=== PATIENT | female | born 1945 | race Caucasian/White ===

== ENCOUNTER → 2016-03-18 | Outpatient (CLI) | payer MEDICARE, BC ==
--- NOTE | 2016-03-19 05:39 | WWHP ---
DATE OF SERVICE: 03/18/2016 CHIEF COMPLAINT: The patient is here for her routine gynecologic exam and mammogram. HPI: This is a 71-year-old, G2, P2 with an LMP of 2000. The patient is without gynecologic complaints and denies any postmenopausal bleeding. PAST MEDICAL HISTORY: Coronary artery disease, sleep apnea, chronic hypertension, gastroesophageal reflux disease, depression, irregular PVCs, mild COPD, and hypothyroidism. Dr. Nieves is her primary care physician. MEDICATIONS: 1. Zoloft 50 mg daily. 2. Cozaar 1 daily. 3. Toprol 25 mg daily. 4. Hydrochlorothiazide 25 mg daily. 5. Aspirin 81 mg daily. 6. AcipHex 20 mg daily. 7. Plavix 75 mg daily. 8. Synthroid 50 mcg daily. ALLERGIES: No known drug allergies. Past surgical history is unchanged from the 2015 H&P. 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 SOCIAL HISTORY: She denies tobacco, alcohol, and drug use and is now retired. She has been since 1967. REVIEW OF SYSTEMS: She has gained about 10 pounds over the last 18 months. She has been experiencing extreme exhaustion recently. She denies respiratory, cardiac problems. GI: She has occasional stomach upset, but this has been going on for many years. She denies any chest pain or chest heaviness. PHYSICAL EXAM: Blood pressure 162/72. Height 5 feet 4-1/2 inches. Weight 231 pounds. Temperature 97.7, pulse 71. This a well-developed, heavyset white female who is alert and oriented x3 in no acute distress. HEENT is within normal limits. NECK: Supple without mass or thyromegaly. CHEST AND LUNGS: Clear to auscultation. HEART: Regular rate and rhythm. Breasts are without mass or discharge. Axillary exam is negative for adenopathy. BACK: Negative for CVA tenderness. ABDOMEN: Mildly obese, soft, nontender, without palpable masses. PELVIC EXAM: External genitalia appears normal with minimal atrophy. Cervix and vagina reveal mild atrophy without lesions. There is no evidence of prolapse. The uterus is midposition, nongravid size and nontender. There are no palpable adnexal masses or tenderness. Rectovaginal exam is negative for mass or tenderness and is negative for occult blood. EXTREMITIES: Nontender. IMPRESSION: 1. A 71-year-old menopausal female with normal gynecologic exam. 2. Multiple medical problems. 3. Elevated blood pressure. 4. Fatigue with extreme exhaustion. PLAN: 1. Pap smear was performed. 2. Self breast examination was discussed. 3. Mammogram will be done today. 4. I have recommended that she follow up with her primary care physician and financial planning assistant as soon as possible regarding her extreme exhaustion and her blood pressure. She states she does have an appointment with her primary care physician within the next week or so. 5. She will return in one year.
--- NOTE | 2016-03-19 10:10 | MM ---
Reason for exam: screening (asymptomatic). Last mammogram was performed 1 year and 6 months ago. History: Patient is postmenopausal. Family history of premenopausal breast cancer in sister at age 43. Physical Findings: A clinical breast exam by your physician is recommended on an annual basis and results should be correlated with mammographic findings. MG 3D Screening Mammo W/Cad Bilateral CC and MLO view(s) were taken. Prior study comparison: September 05, 2014, bilateral MG screening mammo w CAD. May 31, 2013, bilateral digital screening mammo w/CAD. The breast tissue is almost entirely fat. Finding: There are typically benign calcifications in the right breast. Increase in number of calcifications since September 05, 2014 and May 31, 2013. ASSESSMENT: Probably benign, BI-RAD 3 RECOMMENDATION: Follow-up diagnostic mammogram of the right breast in 6 months.
--- NOTE | 2016-03-26 05:47 | WWPLE ---
March 25, 2016 CELIA VARGAS MD RE: Olya Artis Dear Dr. Vargas: I had the pleasure of seeing your patient, Olya Artis, in the office on 03/18/16. As you know she is a 71-year-old menopausal female who presented to me for her routine gynecologic exam. She was without gynecologic complaints, but was experiencing severe exhaustion and fatigue. Her gynecologic exam was unremarkable. Her Pap smear was negative. Her mammogram showed some focal benign-appearing calcifications and they did request a follow-up diagnostic mammogram on the right side in 6 months. I have sent her an order form to the patient for this and I have explained why they are recommending this. She is to follow up with you and her clipper automatic regarding the extreme exhaustion. Her blood pressure was also elevated at 162/72 and will be following up with you for this as well. Thank you for allowing me to participate in the care of your patient. Please do not hesitate to call if you have any questions. Sincerely, GURPREET GRADY
== END | disposition home or self-care (01) ==
LOC: WWCWWP 13:54
PROVIDERS: ATTEND Obstetrics & Gynecology
DX: Z12.31 Encounter for screening mammogram for malignant neoplasm of breast (principal); R92.8 Other abnormal and inconclusive findings on diagnostic imaging of breast
CPT/HCPCS: 77052; 77063; G0202

== ENCOUNTER → 2016-10-09 | Outpatient (CLI) | payer MEDICARE, BC ==
--- NOTE | 2016-10-10 07:40 | MM ---
Reason for exam: additional evaluation requested from prior study. Last mammogram was performed 7 months ago. History: Patient is postmenopausal. Family history of premenopausal breast cancer in sister at age 43. Took hormonal contraceptives for 5 years. Physical Findings: A clinical breast exam by your physician is recommended on an annual basis and results should be correlated with mammographic findings. MG 3D Diag Mammo W/Cad RT CC and MLO view(s) were taken of the right breast. Prior study comparison: March 18, 2016, bilateral MG 3d screening mammo w/cad. September 05, 2014, bilateral MG screening mammo w CAD. May 31, 2013, bilateral digital screening mammo w/CAD. The breast tissue is heterogeneously dense. This may lower the sensitivity of mammography. Finding: There are typically benign round calcifications in the right breast. There is a chronic nodularity in the right breast. These results were verbally communicated with the patient and result sheet given to the patient on 10/09/16. ASSESSMENT: Benign, BI-RAD 2 RECOMMENDATION: Return to routine screening mammogram schedule for both breasts. Back on schedule for March 2017.
== END ==
LOC: RADMAMWWP 13:44
PROVIDERS: ATTEND Obstetrics & Gynecology
DX: R92.8 Other abnormal and inconclusive findings on diagnostic imaging of breast (principal)
CPT/HCPCS: G0206; G0279

== ENCOUNTER → 2017-06-03 | Outpatient (CLI) | payer MEDICARE, BC ==
[2017-06-03 12:21] VITALS: BP 144/65; PULSE 77; TEMP 96.1; BMI 38.4
--- NOTE | 2017-06-03 13:19 | P.HPOB ---
History of Present Illness H&P Date: 06/03/17 Chief Complaint: The patient is here for her routine gynecologic exam and mammogram. This is a 72-year-old with an LMP of 2000. The patient denies any postmenopausal bleeding. She has been experiencing some vulvar itching which has been going on for a while. She states [id number] hydrocortisone did seem to help somewhat. She denies vaginal itching, discharge or odor. She is otherwise without complaints. Review of Systems She has lost about 7 pounds over the last year. She denies respiratory, cardiac , or G.I. problems. She denies maltreatment or falling. : she has occasional slight urinary leakage with sneezing. Past Medical History Past Medical History: Coronary Artery Disease (CAD), COPD, GERD/Reflux, Hypertension, Sleep Apnea/CPAP/BIPAP, Thyroid Disorder (Hypothyroidism) Additional Past Medical History / Comment(s): Cardiac stent x 3,. mammo and bone density -06/03/17 History of Any Multi-Drug Resistant Organisms: None Reported Past Surgical History: Heart Catheterization With Stent (2013 and 2014), Tonsillectomy, Tubal Ligation Additional Past Surgical History / Comment(s): triple by-pass may 2016. Colonoscopy times 2 and her most recent was in 2012. Date of Last Stent Placement:: 05/2016 Past Psychological History: No Psychological Hx Reported, Depression Smoking Status: Never smoker Past Alcohol Use History: None Reported, Rare Past Drug Use History: None Reported Additional History: She has been since 1967 and is retired. Medications and Allergies Allergies Allergy/AdvReac Type Severity Reaction Status Date / Time No Known Allergies Allergy Verified 06/03/17 12:23 Exam - Vital Signs Vital signs: Vital Signs Temp Pulse BP 06/03/17 12:18 96.1 F L 77 144/65 Intake and Output 06/02/17 06/03/17 06/03/17 22:59 06:59 14:59 Other: Weight 101.605 kg Height 5'4" BMI 38.4. This is a heavyset well-nourished white female who is alert and oriented times 3 in no acute distress. HEENT: Within normal limits. NECK: Supple without mass or thyromegaly. CHEST AND LUNGS: Clear to auscultation. HEART: Regular rate and rhythm. BREASTS: Are without mass or discharge. AXILLARY EXAM: Negative for adenopathy. BACK: Negative for CVA tenderness. ABDOMEN: Soft, nontender, without palpable masses. PELVIC EXAM: external genitalia reveals mild generalized vulvar erythema without excoriation or focal lesions.. Cervix and vagina appear normal with mild atrophy. There is no unusual discharge. There is no evidence of prolapse. The uterus is midposition, nongravid size and nontender. There are no palpable adnexal masses or tenderness. RECTAL EXAM: recto-vaginal is negative for mass or tenderness and is negative for occult blood. EXTREMITIES: Nontender. IMPRESSION: 1. 72 year old menopausal female with vulvar pruritus and mild vulvitis on exam. There is no evidence of vaginitis. 2. Multiple medical problems. PLAN: 1. Pap smear was deferred since she had a normal one last year. 2. Self breast examination was discussed. 3. Screening mammogram will be done today. 4. Osteoporosis prevention was discussed. Bone density screening will be done today. 5. Kenalog 0.1% cream b.i.d. PRN. In e-prescription will be sent to [facility] in [place]. 6. She did not receive a flu vaccination and is not interested in getting them. 7. She will return in one year.
--- NOTE | 2017-06-03 16:08 | BD ---
EXAMINATION TYPE: MG DEXA axial skeleton. DATE OF EXAM: 06/03/2017 COMPARISON: NONE CLINICAL HISTORY: Post menopausal female. Screening. Height: 5 FT 4 IN Weight: 224 FRAX RISK QUESTIONS: Alcohol (3 or more units per day): NO Family History (Parent hip fracture): NO Glucocorticoids (More than 3mos): NO (Ex: prednisone, prednisolone, methylprednisolone, dexamethasone, and hydrocortisone). History of Fracture in Adulthood: YES Secondary Osteoporosis: 1. Type 1 Diabetes: NO 2. Hyperthyroidism: NO 3. Menopause before 45: NO 4. Malnutrition: NO 5. Chronic liver disease: NO Rheumatoid Arthritis: NO Current Tobacco Use: NO RISK FACTORS HISTORY OF: Active: NO Postmenopausal woman: AGE 56 MEDICATIONS: Thyroid Medications: YES Which medication: LEVOTHYROXINE How Lon YEARS Additional Medications: LEVOTHYROXINE, ACIPHEX, CYMBALTA, LOSARTIN, BABY ASPIRIN, CARDIZEM, CLONIPIN, Additional History: EXAM MEASUREMENTS: Bone mineral densitometry was performed using the [employer] System. Bone mineral density as measured about the Lumbar spine is: ----- L1-L4(G/cm2): 1.395 T Score Values are as follows: ----- L2: 1.1 ----- L3: 2.5 ----- L4: 2.3 ----- L1-L4: 1.8 Bone mineral density has: INCREASED 6.4 % since study of: 2009 Bone mineral density about the R hip (g/cm2): 0.882 Bone mineral density about the L hip (g/cm2): 0.898 T Score values are as follows: -----R Neck: -1.1 -----L Neck: -1.0 -----R Total: 0.2 -----L Total: 0.0 Bone mineral density has: DECREASED -4.8 % since study of: 2009 IMPRESSION: Osteopenia (T Score between -2.5 and -1) To the right femur. There is slightly increased risk of fracture and the patient may be considered for treatment. Re-Screen 2-5 years. NOTE: T-SCORE=SD OF THE YOUNG ADULT MEAN.
--- NOTE | 2017-06-04 10:09 | MM ---
Reason for exam: screening (asymptomatic). Last mammogram was performed 8 months ago. History: Patient is postmenopausal. Family history of premenopausal breast cancer in sister at age 43. Took hormonal contraceptives for 5 years. Physical Findings: A clinical breast exam by your physician is recommended on an annual basis and results should be correlated with mammographic findings. MG 3D Screening Mammo W/Cad Bilateral CC and MLO view(s) were taken. Prior study comparison: October 09, 2016, right breast MG 3d diag mammo w/cad RT. March 18, 2016, bilateral MG 3d screening mammo w/cad. There are scattered fibroglandular densities. Stable benign calcifications. There is no discrete abnormality. No significant changes when compared with prior studies. ASSESSMENT: Benign, BI-RAD 2 RECOMMENDATION: Routine screening mammogram of both breasts in 1 year.
== END ==
LOC: WWCWWP 11:35
PROVIDERS: ATTEND Obstetrics & Gynecology
DX: Z12.31 Encounter for screening mammogram for malignant neoplasm of breast (principal); M81.0 Age-related osteoporosis without current pathological fracture; Z78.0 Asymptomatic menopausal state
CPT/HCPCS: 77063; 77067; 77080

== ENCOUNTER → 2018-12-28 | Outpatient (CLI) | payer MEDICARE, BC ==
[2018-12-28 13:05] VITALS: BP 147/82; PULSE 88; RESP 18; TEMP 97.7; BMI 39.8
--- NOTE | 2018-12-28 14:02 | P.HPOB ---
History of Present Illness H&P Date: 12/28/18 Chief Complaint: The patient is here for her routine gynecologic exam and ma mmogram. This is a 73-year-old with an LMP of 2000. The patient has been treated for intermittent vulvar pruritus and states the Kenalog cream is helpful but the irritation and pruritus usually will return. More recently she has noticed some more generalized itching without a rash. She denies any postmenopausal bleeding. Review of Systems She has gained about 8 pounds over the last year. She denies respiratory, cardiac and G.I. problems. She denies maltreatment or problems with falling. : she denies any significant problems with urinary leakage but occasionally will have a small amount of leakage with coughing or sneezing. Past Medical History Past Medical History: Coronary Artery Disease (CAD), COPD, CVA/TIA, GERD/Reflux, Hypertension, Myocardial Infarction ([place]), Sleep Apnea/CPAP/BIPAP, Thyroid Disorder Additional Past Medical History / Comment(s): Hypothyroidism. 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 History of Any Multi-Drug Resistant Organisms: None Reported Past Surgical History: Heart Catheterization With Stent, Tonsillectomy, Tubal Ligation Additional Past Surgical History / Comment(s): triple by-pass may 2016. Cardiac stent 3. Colonoscopy 2012(2nd). Cardiac loop internal heart monitor. Date of Last Stent Placement:: 05/2016 Past Psychological History: No Psychological Hx Reported, Depression Smoking Status: Never smoker Past Alcohol Use History: None Reported, Rare (3 per year) Past Drug Use History: None Reported Additional History: She is being masses 1967 and is retired. - Past Family History Sister(s) Family Medical History: Cancer, Diabetes Mellitus Additional Family Medical History / Comment(s): Breast cancer. Another sister had diabetes. Father Family Medical History: Cancer Additional Family Medical History / Comment(s): Lung cancer. Medications and Allergies Home Medications Medication Instructions Recorded Confirmed Type B12/Levomefolate Calcium/B-6 1 tab PO DAILY 06/03/17 12/28/18 History [Foltx Tablet] Diltiazem Cd [Cardizem CD] 1 tab PO DAILY 06/03/17 12/28/18 History Furosemide [Lasix] 1 tab PO DAILY 06/03/17 12/28/18 History Levothyroxine Sodium [Synthroid] 1 tab PO DAILY 06/03/17 12/28/18 History Losartan [Cozaar] 1 tab PO BID 06/03/17 12/28/18 History Magnesium 150 mg PO DAILY 06/03/17 12/28/18 History Potassium Chloride [K-Tab ER] 1 tab PO ONCE PRN 06/03/17 12/28/18 History RABEprazole SODIUM [Aciphex] 1 tab PO DAILY 06/03/17 12/28/18 History Clopidogrel [Plavix] 75 mg PO DAILY 12/28/18 12/28/18 History Venlafaxine HCl [Effexor XR] 75 mg PO DAILY 12/28/18 12/28/18 History Allergies Allergy/AdvReac Type Severity Reaction Status Date / Time No Known Allergies Allergy Verified 12/28/18 13:06 Exam Vital Signs Temp Pulse Resp BP Pulse Ox 12/28/18 12:57 97.7 F 88 18 147/82 97 Intake and Output 12/27/18 12/28/18 12/28/18 22:59 06:59 14:59 Other: Weight 105.233 kg Height 5 feet 4 inches, weight 232 pounds, BMI 39.8. This is a well-developed well-nourished heavyset white female who is alert and oriented times 3 in no acute distress. HEENT: Within normal limits. NECK: Supple without mass or thyromegaly. CHEST AND LUNGS: Clear to auscultation. HEART: Regular rate and rhythm. BREASTS: Are without mass or discharge. AXILLARY EXAM: Negative for adenopathy. BACK: Negative for CVA tenderness. ABDOMEN: Soft, obese, nontender, without palpable masses. PELVIC EXAM: External genitalia reveals mild generalized pallor. There is a right labial inclusion cyst measuring approximately 1 x 1 cm. The patient states this has been there for many years and is unchanged. This is firm and nontender. There are no focal skin vulvar lesions. Cervix and vagina appear normal []. There is no unusual discharge. There is no evidence of prolapse. The uterus is midposition, nongravid size and nontender. There are no palpable adnexal masses or tenderness. Bimanual examination is somewhat limited secondary to her size. RECTAL EXAM: Vaginal exam is negative for mass or tenderness and is negative for occult blood. EXTREMITIES: Nontender. IMPRESSION: 1. 73-year-old menopausal female with intermittent chronic vulvar pruritus with findings suggestive of lichen sclerosis. 2. History of osteopenia 3. Right labial inclusion cyst which is stable per the patient and has been there for many years. PLAN: 1. Pap smears have been discontinued. She has had adequate screening and no history of cervical problems. 2. Self Breast awareness 3. Screening mammogram will be done today. 4. Temovate 0.05% ointment twice a day when necessary. When she is not having significant pruritus, she will use a small amount of petroleum jelly instead of the team elevate ointment. If she finds that she is using the prescription ointment regularly, she was instructed to call for appointment for reevaluation and possible biopsy. She will also call she is noticing changes with the vulvar area. 5. Osteoporosis prevention was discussed. I have stressed the importance of adequate calcium, vitamin D and regular exercise. Recommended amounts of calcium and vitamin D were also discussed. We will plan repeating the bone density test in 1-2 years. 6. She does not get flu shots in the fall but I have asked her to reconsider this decision. 7. The patient was advised to return in 1-2 years for her well woman examination.
--- NOTE | 2018-12-30 08:36 | MM ---
Reason for exam: screening (asymptomatic). Last mammogram was performed 1 year and 7 months ago. History: Patient is postmenopausal. Family history of premenopausal breast cancer in sister at age 43. Took hormonal contraceptives for 5 years. Physical Findings: A clinical breast exam by your physician is recommended on an annual basis and results should be correlated with mammographic findings. MG 3D Screening Mammo W/Cad Bilateral CC and MLO view(s) were taken. Prior study comparison: June 03, 2017, bilateral MG 3d screening mammo w/cad. October 09, 2016, right breast MG 3d diag mammo w/cad RT. There are scattered fibroglandular densities. Electronic device inferior left breast. No significant changes when compared with prior studies. ASSESSMENT: Benign, BI-RAD 2 RECOMMENDATION: Routine screening mammogram of both breasts in 1 year.
== END | disposition home or self-care (01) ==
LOC: WWCWWP 12:49
PROVIDERS: ATTEND Obstetrics & Gynecology
DX: Z12.31 Encounter for screening mammogram for malignant neoplasm of breast (principal)
CPT/HCPCS: 77063; 77067

== ENCOUNTER → 2021-03-12 | Outpatient (CLI) | payer MEDICARE, BC ==
[2021-03-12 14:14] VITALS: BP 153/76; PULSE 76; RESP 18; TEMP 97.8
--- NOTE | 2021-03-12 15:03 | P.HPOB ---
History of Present Illness H&P Date: 03/12/21 Chief Complaint: The patient is here for her routine gynecologic exam and ma mmogram. This is a 76-year-old with an LMP of 2000. The patient states she continues to have occasional vulvar pruritus and states that the Temovate ointment has been more helpful than the Kenalog cream. She states the right labial inclusion cyst has been unchanged for many years. She denies any postmenopausal bleeding. Review of Systems The patient has lost 6 pounds over the past 2 years. She denies respiratory problems. 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 GI: Occasional stomach upset. Past Medical History Past Medical History: Coronary Artery Disease (CAD), COPD, CVA/TIA, GERD/Reflux, Hypertension, Myocardial Infarction ([place]), Sleep Apnea/CPAP/BIPAP, Thyroid Disorder Additional Past Medical History / Comment(s): Hypothyroidism. 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 Last Myocardial Infarction Date:: 10/11/20 History of Any Multi-Drug Resistant Organisms: None Reported Past Surgical History: Heart Catheterization With Stent, Tonsillectomy, Tubal Ligation Additional Past Surgical History / Comment(s): triple by-pass may 2016. Cardiac stent 3. Colonoscopy 2012(2nd). Cardiac loop internal heart monitor. Date of Last Stent Placement:: 05/2016 Past Psychological History: No Psychological Hx Reported, Depression Smoking Status: Never smoker Past Alcohol Use History: Rare (0-1 per month.) Past Drug Use History: None Reported Additional History: She has been since 1967 and is retired. - Past Family History Sister(s) Family Medical History: Cancer, Diabetes Mellitus Additional Family Medical History / Comment(s): Breast cancer. Another sister had diabetes. Father Family Medical History: Cancer Additional Family Medical History / Comment(s): Lung cancer. Medications and Allergies Home Medications Medication Instructions Recorded Confirmed Type Diltiazem Cd [Cardizem CD] 1 tab PO DAILY 06/03/17 03/12/21 History Furosemide [Lasix] 1 tab PO DAILY 06/03/17 03/12/21 History Levothyroxine Sodium [Synthroid] 1 tab PO DAILY 06/03/17 03/12/21 History Losartan [Cozaar] 1 tab PO BID 06/03/17 03/12/21 History Magnesium 150 mg PO DAILY 06/03/17 03/12/21 History Potassium Chloride [K-Tab ER] 1 tab PO ONCE PRN 06/03/17 03/12/21 History RABEprazole SODIUM [Aciphex] 1 tab PO DAILY 06/03/17 03/12/21 History Clobetasol Propionate [Temovate 1 applic TOPICAL BID PRN #30 gm 12/28/18 03/12/21 Rx 0.05% Oint] Clopidogrel [Plavix] 75 mg PO DAILY 12/28/18 03/12/21 History Venlafaxine HCl [Effexor XR] 75 mg PO DAILY 12/28/18 03/12/21 History Ascorbic Acid [Vitamin C] 500 mg PO DAILY 03/12/21 03/12/21 History Aspirin 81 mg PO DAILY 03/12/21 03/12/21 History Cholecalciferol [Vitamin D3 (25 25 mcg PO DAILY 03/12/21 03/12/21 History Mcg = 1000 Iu)] Cider Vinegar [Apple Cider Vinegar] 300 mg PO DAILY 03/12/21 03/12/21 History Cyclobenzaprine [Flexeril] 10 mg PO HS 03/12/21 03/12/21 History Multivitamin [Multivitamins Adult 1 each PO DAILY 03/12/21 03/12/21 History Gummies] Triamcinolone Acetonide 1 applic TOPICAL DAILY PRN 03/12/21 03/12/21 History [Triamcinolone Acetonide 0.025%] metFORMIN HCL 500 mg PO DAILY 03/12/21 03/12/21 History Allergies Allergy/AdvReac Type Severity Reaction Status Date / Time No Known Allergies Allergy Verified 03/12/21 14:03 Exam Vital Signs Temp Pulse Resp BP Pulse Ox 03/12/21 14:07 97.8 F 76 18 153/76 99 Intake and Output 03/11/21 03/12/21 03/12/21 22:59 06:59 14:59 Other: Weight 102.512 kg Height 5 feet 3 inches, weight 226 pounds, BMI 40.0. This is a well-developed well-nourished heavyset white female who is alert and oriented times 3 in no acute distress. HEENT: Within normal limits. NECK: Supple without mass or thyromegaly. CHEST AND LUNGS: Clear to auscultation. HEART: Regular rate and rhythm. BREASTS: Are without mass or discharge. AXILLARY EXAM: Negative for adenopathy. BACK: Negative for CVA tenderness. ABDOMEN: Soft, obese, nontender, without palpable masses. PELVIC EXAM: External genitalia reveals mild generalized erythema with minimal pallor. There is a palpable right labia majora inclusion cyst measuring approximately 1 x 1 cm and this is stable from her previous exam. This is nontender and benign in appearance. Cervix and vagina appear normal with mild atrophy. There is no unusual discharge. There is no evidence of prolapse. The uterus is midposition, nongravid size and nontender. There are no palpable adnexal masses or tenderness. Bimanual examination is somewhat limited secondary to her size. RECTAL EXAM: Rectovaginal exam is negative for mass or tenderness and is negative for occult blood. EXTREMITIES: Nontender. IMPRESSION: 1. 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 2. Benign right labial inclusion cyst which is unchanged from her previous exam. 3. History of osteopenia. PLAN: 1. Pap smears have been discontinued. 2. Self breast awareness was discussed with the patient. We have also discussed symptoms associated with inflammatory breast cancer. 3. Screening mammogram will be done today. 4. Osteoporosis prevention was discussed. I have stressed the importance of adequate calcium, vitamin D and regular exercise. Recommended amounts of calcium and vitamin D were also discussed. I have recommended bone density reid ting since it has been about 3 years since her last one. The order slip was given to the patient for this. 5. Temovate 0.05% ointment twice a day when necessary. The electronic prescription will be sent to [facility] in [place]. 6. She has had 2 Covid Vaccinations and I have recommended that she get the booster shot especially because of her medical history. 7. She was advised to return in one year for her annual well woman exam.
--- NOTE | 2021-03-13 11:05 | MM ---
Reason for exam: screening (asymptomatic). Last mammogram was performed 2 years and 2 months ago. History: Patient is postmenopausal. Family history of premenopausal breast cancer in sister at age 43. Took hormonal contraceptives for 5 years. Physical Findings: A clinical breast exam by your physician is recommended on an annual basis and results should be correlated with mammographic findings. MG 3D Screening Mammo W/Cad Bilateral CC and MLO view(s) were taken. Prior study comparison: December 28, 2018, bilateral MG 3d screening mammo w/cad. June 03, 2017, bilateral MG 3d screening mammo w/cad. There are scattered fibroglandular densities. No significant changes when compared with prior studies. ASSESSMENT: Benign, BI-RAD 2 RECOMMENDATION: Routine screening mammogram of both breasts in 1 year.
== END ==
LOC: WWCWWP 13:56
PROVIDERS: ATTEND Obstetrics & Gynecology
DX: Z12.31 Encounter for screening mammogram for malignant neoplasm of breast (principal)
CPT/HCPCS: 77063; 77067